=== PATIENT | female | born 1990 | race Caucasian/White ===

== ENCOUNTER 2017-05-19 22:31 | Emergency (ER) | payer SELFPAY ==
[~2017-05-19] VITALS: Ht 157.5 cm; Wt 55.0 kg
[2017-05-20] MEDS ORDERED: ACETAMINOPHEN WITH CODEINE 300/30MG TABLET PO ONE
[2017-05-20 00:59] LABS: HCG SCREEN POSITIVE
[2017-05-20 01:37] VITALS: BP 110/62
== END 2017-05-20 01:41 | disposition home or self-care (01) ==
LOC: ER 22:34
DX: S16.1XXA Strain of muscle, fascia and tendon at neck level, initial encounter (principal); V43.62XA Car passenger injured in collision with other type car in traffic accident, initial encounter; Y93.89 Activity, other specified; Y92.410 Unspecified street and highway as the place of occurrence of the external cause; R51 Headache
CPT/HCPCS: 84703; 99283